=== PATIENT | male | born 1960 | race Asian ===

== ENCOUNTER 2018-07-26 08:24 | Emergency (ER) | payer BC ==
[2018-07-26] MEDS ORDERED: MECLIZINE 12.5 MG TABLET PO STA (09:13)
[2018-07-26] MEDS ORDERED: SODIUM CHLORIDE 0.9% 1,000 ML IV ONE (09:13)
[2018-07-26] MEDS ORDERED: ONDANSETRON ODT 4 MG TABLET TL STA (09:13)
[2018-07-26] MEDS ORDERED: FAMOTIDINE 20 MG/50 ML 50 ML IV ONE (09:13)
--- NOTE | 2018-07-26 09:16 | ED Physician Documentation ---
History of Present Illness - Stated complaint Stated Complaint: DIZZY - Chief complaint Chief Complaint: Neuro - Additonal information Additional information: hx from pt 58 male hx HTN DM GERD was fine yesterday awoke this AM with heart burn and vertigo + NV no falls no focal numbness or weakness only recent med changes was omeprazole to ranitidine Review of Systems Constitutional: denies: Fever, Chills Cardiac: reports: Chest pain / pressure (acid sx) Respiratory: denies: Dyspnea GI: reports: Abdominal Pain, Nausea, Vomiting Musculoskeletal: denies: Neck pain, Back pain Neurologic: reports: Other (vertigo). denies: Focal weakness, Numbness, Headache, Head injury Endocrine: denies: Easy bruising / bleeding Immunocompromised: denies: Immunocompromised PD PAST MEDICAL HISTORY - Past Medical History Past Medical History: Yes Cardiovascular: Hypertension, High cholesterol Endocrine/Autoimmune: Type 2 diabetes GI: GERD - Past Surgical History Past Surgical History: No - Present Medications Home Medications: Ambulatory Orders Medication Instructions Recorded Confirmed Loratadine [Claritin] 02/25/14 02/25/14 Losartan [Cozaar] 02/25/14 02/25/14 Metformin HCl 02/25/14 02/25/14 Simvastatin 02/25/14 02/25/14 Meclizine [Antivert] 25 mg PO Q6H PRN #20 tablet 07/26/18 Ondansetron Odt [Zofran] 4 mg TL Q6H PRN #10 tablet 07/26/18 raNITIdine [Zantac] 07/26/18 - Allergies Allergies/Adverse Reactions: Allergies Allergy/AdvReac Type Severity Reaction Status Date / Time No Known Drug Allergies Allergy Verified 07/26/18 08:48 - Social History Does the pt smoke?: No Smoking Status: Never smoker Does the pt drink ETOH?: Yes Does the pt have substance abuse?: No - Immunizations Immunizations are current?: Yes - POLST Patient has POLST: No PD ED PE NORMAL - Vitals Vital signs reviewed: Yes - General General: Alert and oriented X 3 - HEENT HEENT: Atraumatic, PERRL, EOMI (nystagmus looking right), Ears normal (no FB) - Neck Neck: Supple, no meningeal sign - Cardiac Cardiac: RRR - Respiratory Respiratory: No respiratory distress - Abdomen Abdomen: Soft, Non tender - Neuro Neuro: Alert and oriented X 3, exploration driller 2-12 intact, No motor deficit, No sensory deficit, Normal speech Eye Opening: Spontaneous Motor: Obeys Commands Verbal: Oriented GCS Score: 15 Results - Vitals Vitals: Vital Signs - 24 hr 07/26/18 07/26/18 07/26/18 08:30 09:46 10:26 Temperature 36.5 C Heart Rate 70 75 75 Respiratory 16 13 16 Rate Blood Pressure 118/78 130/90 H 121/86 H O2 Saturation 99 100 99 Oxygen O2 Source Room air - EKG (time done) 0907 Rate: Rate (enter#) (78) Rhythm: NSR Ischemia: Other (ST elev v1-v3 concave up V2 and v3 suggests repol ) Compare to prior EKG: Old EKG unavailable (> 5 yr ago at another hospital per pt) - Labs Labs: Laboratory Tests 07/26/18 07/26/18 07/26/18 09:15 09:15 09:15 WBC 9.2 RBC 4.32 L Hgb 13.8 L Hct 39.4 L MCV 91.2 MCH 31.8 H MCHC 34.9 RDW 13.4 Plt Count 196 MPV 8.8 Neut # (Auto) 6.3 Lymph # (Auto) 2.0 [place] # (Auto) 0.8 Eos # (Auto) 0.1 Baso # (Auto) 0.1 Absolute Nucleated RBC 0.00 Nucleated RBC % 0.0 Sodium 138 Potassium 3.7 Chloride 105 Carbon Dioxide 23 Anion Gap 10.0 BUN 18 Creatinine 1.1 Estimated GFR (MDRD) 69 L Glucose 205 H Calcium 8.4 L Total Bilirubin 0.6 AST 26 ALT 25 Alkaline Phosphatase 74 Troponin I < 0.04 Total Protein 7.5 Albumin 4.2 Globulin 3.3 Albumin/Globulin Ratio 1.3 Lipase 83 H - Rads (name of study) [facility] Radiology: See rad report (no acute) Departure - Departure Disposition: 01 Home, Self Care Clinical Impression: Vertigo Condition: Good Instructions: ED Vertigo Unspecified Follow-Up: Vinicius Altamirano DO [Primary Care Provider] - Prescriptions: Meclizine [Antivert] 25 mg PO Q6H PRN #20 tablet PRN Reason: Dizziness Ondansetron Odt [Zofran] 4 mg TL Q6H PRN #10 tablet PRN Reason: Nausea / Vomiting Comments: The CT scan did not show any brain abnormalities - no bleeding, no tumors, no stoke. Vertigo is most commonly caused by an inner ear problem and self resolves. i have prescribed medication you can take to minimize the symptoms and a copy of some exercises you can do to try and get any particulate matter out of the balance chambers of the inner ear Follow up with your PMD if not better in 48 hr - if not improving you may need a MRI of your brain as well. And no driving until better Forms: Activity restrictions NIHSS - Time Time: 09:05 - Level of Consciousness Level of consciousness: (0) Alert, Keenly responsive LOC Questions: (0) Answers both Q's correct LOC Commands: (0) Performs both correctly - Gaze Best Gaze: (0) Normal - Visual Visual: (0) No loss - Facial Palsy Facial Palsy: (0) Normal, symmetrical movement - Motor Arms (both separate) Motor Arm (right): (0) No drift Motor Arm (left): (0) No drift - Motor Legs (both separate) Motor Leg (right): (0) No drift Motor Leg (left): (0) No drift - Limb Ataxia Limb Ataxia: (0) Absent - Sensory Sensory: (0) Normal - Best Language Best Language: (0) No aphasia - Dysarthria Dysarthria: (0) Normal - Extinction and Inattention (formally neg Extinction and inattention: (0) No abnormality - Total Score/Results Total Score/Result: 0
[2018-07-26 09:30] LABS: BASOPHILS # (AUTO) 0.1 10^3/uL (0.0-0.1); BASOPHILS % (AUTO) 0.7 %; EOSINOPHILS # (AUTO) 0.1 10^3/uL (0.0-0.7); HGB - HEMOGLOBIN 13.8 g/dL (14.0-18.0); LYMPHOCYTES % (AUTO) 21.7 %; MEAN CORPUSCULAR HEMOGLOBIN 31.8 pg (27.0-31.0); MEAN CORPUSCULAR HGB CONC 34.9 g/dL (32.0-36.0); MEAN CORPUSCULAR VOLUME 91.2 fL (80.0-94.0); MEAN PLATELET VOLUME 8.8 fL (7.4-11.4); MONOCYTES # (AUTO) 0.8 10^3/uL (0.0-1.0); MONOCYTES % (AUTO) 8.2 %; NEUTROPHILS # (AUTO) 6.3 10^3/uL (1.5-6.6); NEUTROPHILS % (AUTO) 68.4 %; PLT - PLATELET COUNT 196 10^3/uL (130-450); RED BLOOD COUNT 4.32 10^6/uL (4.70-6.10); RED CELL DISTRIBUTION WIDTH 13.4 % (12.0-15.0); WHITE BLOOD COUNT 9.2 x10^3/uL (4.8-10.8)
[2018-07-26 09:46] LABS: ALBUMIN 4.2 g/dL (3.2-5.5); ALBUMIN/GLOBULIN RATIO 1.3 (1.0-2.2); BILIRUBIN,TOTAL 0.6 mg/dL (0.2-1.0); CALCIUM 8.4 mg/dL (8.5-10.3); CREATININE 1.1 mg/dL (0.6-1.2); TOTAL PROTEIN 7.5 g/dL (6.7-8.2)
--- NOTE | 2018-07-26 10:23 | CT Report ---
Reason: vertigo - since awoke this AM Procedure Date: 07/26/2018 Accession Number: [id number] / [id number] Procedure: CT - Head W/O CPT Code: FULL RESULT: EXAM: CT HEAD EXAM DATE: 07/26/2018 10:15 AM. CLINICAL HISTORY: Vertigo - since awoke this AM. COMPARISON: None. TECHNIQUE: Multiaxial CT images were obtained from the foramen magnum to the vertex. Reformats: Sagittal and coronal. IV contrast: None. In accordance with CT protocol optimization, one or more of the following dose reduction techniques were utilized for this exam: automated exposure control, adjustment of mA and/or KV based on patient size, or use of iterative reconstructive technique. FINDINGS: Parenchyma: No intraparenchymal hemorrhage. No evidence of mass, midline shift, or CT findings of infarction. Melendez-white differentiation is distinct. Extraaxial Spaces: Normal for age. No subdural or epidural collections. Ventricles: Normal in size and position. Sinuses and Orbits: Imaged paranasal sinuses, orbits, and mastoids show no significant abnormality. Bones: Unremarkable. Other: None. IMPRESSION: Normal head CT. RADIA
[2018-07-26 10:27] VITALS: BP 121/86
== END 2018-07-26 11:38 | disposition home or self-care (01) ==
LOC: ED 08:24
DX: R42 Dizziness and giddiness (principal); K21.9 Gastro-esophageal reflux disease without esophagitis; R11.2 Nausea with vomiting, unspecified; R94.31 Abnormal electrocardiogram [ECG] [EKG]; I10 Essential (primary) hypertension; E11.9 Type 2 diabetes mellitus without complications; Z79.84 Long term (current) use of oral hypoglycemic drugs
CPT/HCPCS: 36415; 70450; 80053; 83690; 84484; 85025; 93005; 96361; 96374; 99283; 99284; A9270; Q0162

== ENCOUNTER 2020-01-24 16:20 | Outpatient (CLI) | payer BC ==
[2020-01-24 18:30] LABS: BASOPHILS # (AUTO) 0.1 10^3/uL (0.0-0.1); BASOPHILS % (AUTO) 0.7 %; EOSINOPHILS # (AUTO) 0.2 10^3/uL (0.0-0.7); EOSINOPHILS % (AUTO) 2.4 %; HGB - HEMOGLOBIN 13.2 g/dL (14.0-18.0); LYMPHOCYTES # (AUTO) 2.1 10^3/uL (1.5-3.5); LYMPHOCYTES % (AUTO) 31.1 %; MEAN CORPUSCULAR HEMOGLOBIN 30.8 pg (27.0-31.0); MEAN CORPUSCULAR HGB CONC 33.8 g/dL (32.0-36.0); MEAN CORPUSCULAR VOLUME 91.1 fL (80.0-94.0); MEAN PLATELET VOLUME 10.5 fL (7.4-11.4); MONOCYTES # (AUTO) 0.7 10^3/uL (0.0-1.0); MONOCYTES % (AUTO) 10.9 %; NEUTROPHILS # (AUTO) 3.7 10^3/uL (1.5-6.6); NEUTROPHILS % (AUTO) 54.8 %; PLT - PLATELET COUNT 209 10^3/uL (130-450); RED BLOOD COUNT 4.29 10^6/uL (4.70-6.10); RED CELL DISTRIBUTION WIDTH 12.8 % (12.0-15.0); WHITE BLOOD COUNT 6.7 x10^3/uL (4.8-10.8)
[2020-01-24 18:50] LABS: HB2 TOTAL 13.2 g/dL; HEMOGLOBIN A1C 0.66 g/dL; HEMOGLOBIN A1C % 6.7 % (4.6-6.2)
[2020-01-24 18:54] LABS: ALBUMIN 4.1 g/dL (3.2-5.5); ALBUMIN/GLOBULIN RATIO 1.1 (1.0-2.2); ALKALINE PHOSPHATASE 54 IU/L (42-121); ALT ALANINE AMINOTRANSFERASE 24 IU/L (10-60); AST ASPARTATE AMINOTRANSFERASE 21 IU/L (10-42); BILIRUBIN,TOTAL 0.5 mg/dL (0.2-1.0); BUN - BLOOD UREA NITROGEN 16 mg/dL (6-20); CALCIUM 8.8 mg/dL (8.5-10.3); CARBON DIOXIDE - CO2 26 mmol/L (21-32); CHLORIDE 107 mmol/L (101-111); CHOL/HDL RATIO 3.7 (<5.0); CHOLESTEROL 149 mg/dL; CREATININE 1.1 mg/dL (0.6-1.2); GLUCOSE 98 mg/dL (70-100); HDL CHOLESTEROL 40 mg/dL; LDL CHOLESTEROL,CALCULATED 54 mg/dL; LDL/HDL RATIO 1.4 (<3.6); SODIUM 140 mmol/L (135-145); TOTAL PROTEIN 7.7 g/dL (6.7-8.2); VLDL CHOLESTEROL 55 mg/dL
== END 2020-01-24 23:59 | disposition home or self-care (01) ==
LOC: LAB.WCP 16:20
PROVIDERS: ATTEND Family Medicine
DX: E11.9 Type 2 diabetes mellitus without complications (principal); R07.89 Other chest pain
CPT/HCPCS: 36415; 80053; 80061; 83036; 83721; 84484; 85025

== ENCOUNTER 2020-04-04 07:28 | Outpatient (CLI) | payer BC ==
--- NOTE | 2020-04-04 11:08 | CARDIAC PROCEDURE NOTE ---
DATE OF SERVICE: 04/04/2020 Physician: Nazia Oconnor MD, [facility] INDICATION: Chest pain, diabetes, hypertension, hyperlipidemia. CARDIAC RISK FACTORS: Male gender, diabetes, hypertension, hyperlipidemia, family history of heart disease. DESCRIPTION OF PROCEDURE: After signing informed consent, patient underwent a Sixto-protocol treadmill stress test with Echo imaging at rest and post exercise. Resting heart rate: 71. Peak heart rate: 154 (94% predicted maximum heart rate for age). Resting blood pressure: 149/96. Peak blood pressure: 235/51. (Patient did not take any morning medications.) The patient exercised for 4 minutes and 59 seconds on a Sixto-protocol treadmill stress test. He achieved a peak heart rate of 154 (94% PMHR) and 6.9 METs. The patient had no chest pain. The patient had mild to moderate shortness of breath. He rated his perceived exertion at 16/20 at peak on the Snow scale. Oxygen saturation was 97% to 99% on room air throughout the test. RESTING ELECTROCARDIOGRAM: Normal sinus rhythm, left atrial enlargement, marked LVH voltage. ELECTROCARDIOGRAM AT PEAK: [address] segment depression seen in leads II, III, aVF, and V4 through V6. SUMMARY 1. Abnormal resting electrocardiogram with severe left ventricular hypertrophy findings. 2. Poorly controlled HTN 3. Nonspecific ST segment changes noted; these may be from ischemia or from left ventricular hypertrophy strain pattern. 4. No chest pain occurred during this exertion. 5. Echocardiogram images reported separately. 6. This patient's cardiac risk based on all the above: Moderate-High. cc: Vinicius Altamirano DO TD: 04/04/2020 10:54 [facility]
== END 2020-04-04 07:29 | disposition home or self-care (01) ==
LOC: DI 07:28
PROVIDERS: ATTEND Family Medicine
DX: R94.31 Abnormal electrocardiogram [ECG] [EKG] (principal); R07.9 Chest pain, unspecified; E11.9 Type 2 diabetes mellitus without complications; E78.5 Hyperlipidemia, unspecified; I11.9 Hypertensive heart disease without heart failure
CPT/HCPCS: 93016; 93018; 93350